=== PATIENT | male | born 2000 | race Two or more races ===

== ENCOUNTER 2025-10-20 09:12 | Emergency (ER) | payer OTHER ==
[~2025-10-20] VITALS: Ht 180.3 cm; Wt 90.7 kg
[2025-10-20 12:03] LABS: BASO % 0.2 % (0.1-1.2); EOS # 0.00 (0.04-0.54); EOS % 0.0 % (0.7-7.0); LYMPH # 0.77 (1.18-3.74); LYMPH % 14.6 % (19.3-53.1); MEAN PLATELET VOLUME 8.90 fl (9.4-12.4); MONO # 0.61 (0.24-0.82); MONO % 11.6 % (4.7-12.5); NEUT # 3.87 (1.56-6.13); NEUT % 73.2 % (34.0-71.1); RED CELL DISTRIBUTION WIDTH 12.2 % (11.6-14.4)
[2025-10-20 12:07] LABS: ERYTHROCYTE SEDIMENTATION RATE 6 mm/hr (0-15)
[2025-10-20 12:18] LABS: URINE APPEARANCE Clear; URINE BILIRRUBIN Negative (NEGATIVE); URINE BLOOD Negative; URINE COLOR Dark Yellow; URINE GLUCOSE Negative (NEGATIVE); URINE KETONE 15 (NEGATIVE); URINE LEUKOCYTE Negative; URINE NITRATE Negative; URINE PROTEIN 30 (NEGATIVE); URINE UROBILINOGEN 1.0 E.U./dl
[2025-10-20 12:22] LABS: URINE EPITHELIAL CELLS 18.3 uL (0.0-38.8); URINE RBC 2.4 uL (0.0-20.8); URINE WBC 9.6 uL (0.0-23.2)
[2025-10-20 12:28] LABS: ALT/SGPT 59.0 U/L (12-78); AST/SGOT 36.0 U/L (15-37); BILIRUBIN TOTAL 0.93 mg/dL (0.3-1.2); BUN CREA RATIO 13.0 (7.0-25.0); CREATININE SERUM 1.19 mg/dL (0.70-1.30); GFR 73.33; GLOBULINA 3.8 G/DL (2.4-3.5); GLUCOSE FASTING 116.0 mg/dL (65-100); OSMOLALITY SERUM 283.0 MOSM/KG (275-295)
[2025-10-20 12:36] LABS: URINE BACTERIA 3.4 uL (0.0-1933); URINE CAST 0.84 uL (0.0-1.40)
[2025-10-20] MEDS ORDERED: METHYLPREDNISOLONE SOD SUCC 125 MG VIAL IM STA (12:38)
[2025-10-20] MEDS ORDERED: ALBUTEROL SULFATE 3 ML/2.5 MG AMPUL.NEB IH SCH (12:45)
[2025-10-20 12:51] LABS: COVID-19 AG NEGATIVE (NEGATIVE)
[2025-10-20 13:11] LABS: URINE CRYSTALS FEW /HPF; URINE MUCUS MODERATE
[2025-10-20] MEDS ORDERED: ALBUTEROL SULFATE 3 ML/2.5 MG AMPUL.NEB IH ONE (13:49)
[2025-10-20] MEDS ORDERED: METHYLPREDNISOLONE SOD SUCC 125 MG VIAL ONE (14:04)
[2025-10-20] MEDS ORDERED: OSEL75CA PO (14:23)
[2025-10-20] MEDS ORDERED: ALBUTEROL2.5 MG/3 M IH (14:23)
[2025-10-20] MEDS ORDERED: BUDESONIDE0.5 MG/2 M IH (14:23)
== END 2025-10-20 15:04 | disposition home or self-care (01) ==
LOC: ER 09:12
PROVIDERS: Physician Assistant Medical
DX: B34.9 Viral infection, unspecified (principal); J10.1 Influenza due to other identified influenza virus with other respiratory manifestations; A08.8 Other specified intestinal infections; R05.8 Other specified cough; R51.9 Headache, unspecified; J20.9 Acute bronchitis, unspecified; Z20.822 Contact with and (suspected) exposure to COVID-19